=== PATIENT | female | born 1980 | race Caucasian/White ===

== ENCOUNTER 2016-09-09 09:54 | Emergency (ER) | payer BC ==
--- NOTE | 2016-09-09 12:31 | ER NURSING DOCUMENTATION ---
Nurse's Notes [facility] Name:Xiomara Dias Age:36 yrs Sex:Female :1980 Arrival Date:09/09/2016 Time:09:54 Bed3 Private MD:Fredy Elias Diagnosis:Gastroenteritis;Vomiting - Dehydration Presentation: 09/09 09:58 Presenting complaint: Patient states: N/V/D since yesterday AM. 16 weeks , tg first , no medical issues thus far. Transition of care: patient was not received from another setting of care. 09:58 Method Of Arrival: Private Vehicle tg 09:58 Acuity: ROMAN 3 tg Triage Assessment: 10:26 General: Appears in no apparent distress, Behavior is cooperative, pleasant. tg Cardiovascular: Capillary refill < 3 seconds. Respiratory: Respiratory effort is even, unlabored. GI: Reports intolerance of fluids. Derm: Skin is pink, warm & dry. Historical: - Allergies: narcotic senstive; - Home Meds: 1. prenantal - PMHx: None; - PSHx: None; - Tetanus: < 10 years. - Ebola Screening: : Patient negative for fever greater than or equal to 101.5 degrees Fahrenheit, and additional compatible Ebola Virus Disease symptoms. Patient denies exposure to infectious person. Patient denies travel to an Ebola-affected area in the 21 days before illness onset. No symptoms or risks identified at this time. . - Immunization history: Flu Vaccine >1 year. - Social history: Smoking status: Patient states former smoker of tobacco. Screenin:25 Infectious Disease Risk Unable to Obtain. Abuse screen: Denies threats or abuse. Denies tg injuries from another. Nutritional screening: No deficits noted. Assessment: 10:25 Pain: Complains of pain in suprapubic area. GI: Reports diarrhea, intolerance of tg fluids, nausea, vomiting. 10:27 Reassessment: Attempted to use doppler US for FHTs. Unable to detect FHTs, Dr. Mcdonald tg notified. . Vital Signs: 10:07 BP 128 / 70; Pulse 94; Resp 16; Temp 98.1(O); Pulse Ox 93% on R/A; Weight 95.25 kg (R); tg Height 5 ft. 9 in. (175.26 cm) (R); Pain 1/10; 11:18 BP 123 / 70; Pulse 90; Resp 16; Pulse Ox 93% on R/A; tg 12:26 Pulse 82; Resp 18; Pulse Ox 93% on R/A; Pain 0/10; tg 10:07 Body Mass Index 31.01 (95.25 kg, 175.26 cm) tg ED Course: 09:55 Patient arrived in ED. ama 09:56 Fredy Elias MD is Private Physician. ama 09:56 Dru Alegria, FEDE is Primary Nurse. tg 10:00 Triage completed. tg 10:25 Valuables Remains with patient Patient has correct armband on for positive tg identification. Placed in gown. Bed in low position. Call light in reach. Side rails up X 1. Pulse Ox - RN Monitoring Only. 10:25 Inserted peripheral IV: 20 gauge in left antecubital area and blood collected. tg 10:27 Notified ED Physician of patient's arrival and chief complaint. Dr. Mcdonald notified. Arm tg band placed on. 10:30 Gustavo Mcdonald MD is Attending Physician. cd 10:49 Fredy Elias MD is Referral Physician. cd 11:18 Diet: Patient given juice. tg 11:38 Diet: Tolerated well. tg Administered Medications: 10:24 Drug: NS 0.9% 1000 ml; Route: IV; Rate: bolus; Site: left antecubital; Delivery: tg [place] Tubing; 10:42 Follow up: IV Status: Completed infusion; IV Intake: 1000ml tg 10:42 Drug: NS 0.9% 1000 ml; Route: IV; Rate: bolus; Site: left antecubital; Delivery: tg [place] Tubing; 11:17 Follow up: IV Status: Completed infusion; IV Intake: 1000ml tg 11:55 Drug: NS 0.9% 1000 ml; Route: IV; Rate: bolus; Site: left antecubital; tg 12:26 Follow up: IV Status: Completed infusion; IV Intake: 1000ml tg Point of Care Testing: Urine Dip: 11:50 pH: 5.5; ; Specific [place]: 1.025; Ketones: Large; Glucose: Negative; Protein: tg Positive (+); Leukocytes: Negative; Nitrite: Negative ; Blood: Negative; Bilirubin: Negative ; Urobilinogen: Normal Intake: 10:42 IV: 1000ml; Total: 1000ml. tg 11:17 IV: 1000ml; Total: 2000ml. tg 11:56 PO: 60ml (Juice); Total: 2060ml. tg 12:26 IV: 1000ml; Total: 3060ml. tg Output: 11:50 Urine: 30ml (Voided); Total: 30ml. tg 12:27 Urine: 100ml (Voided); Total: 130ml. tg Outcome: 10:49 Discharge ordered by MD. cd 12:27 Discharged to home ambulatory. tg 12: Condition: stable 12:27 Discharge Assessment: Patient awake, alert and oriented x 3. No cognitive and/or functional deficits noted. Patient verbalized understanding of disposition instructions. 12:27 Instructed on discharge instructions, follow up and referral plans. 12:27 IV D/Chip 12:31 Patient left the ED. tg 09/10 09:24 Discharge F/U Call: Spoke with: patient. Overall Care on a scale of 1-[address] being the best care, you rate our care as: Other comments: pt is doing better today. she is eating small amounts and drinking fluids and it is all staying down. Pt did have a question about not having a BM today. pt was told this was probable do to not eating solid foods and that it was OK at this point but to keep an eye on it as she was able to return to a normal diet. Signatures: Dru Alegria RN RN tg Twombly, Summer, RN RN st Daley, Chris, MD MD cd Averdick, Andrew, Reg Reg ama
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
== END 2016-09-09 12:31 | disposition home or self-care (01) ==
LOC: ER 09:54
DX: O99.612 Diseases of the digestive system complicating pregnancy, second trimester (principal); K52.89 Other specified noninfective gastroenteritis and colitis; O21.8 Other vomiting complicating pregnancy; E86.0 Dehydration
CPT/HCPCS: 96360; 99284